=== PATIENT | female | born 1985 | race Caucasian/White ===

== ENCOUNTER 2016-03-18 08:23 | Emergency (ER) | payer OTHER ==
[~2016-03-18 08:23] MED LIST: IBUP800T PO; METHERGINE PO; NO HISTORICAL MEDS; PERC5TAB8 OR
[2016-03-18 09:18] LABS: CONTROL LINE UCG INT CTR LINE PRESENT
[2016-03-18 09:20] LABS: BASO % 0.4 % (0.0-1.0); EOS % 1.2 % (0.0-3.0); LARGE UNSTAINED CELL # 0.2 K/mm3 (0.0-0.4); LARGE UNSTAINED CELL % 3.5 % (0.0-4.0); LYMPH # 1.2 K/mm3 (1.5-4.5); LYMPH % 27.7 % (24.0-44.0); MEAN CORPUSCULAR HEMOGLOBIN 30.9 pg (27.0-33.0); MEAN CORPUSCULAR HGB CONC 32.5 g/dl (32.0-36.5); MONO # 0.3 K/mm3 (0.0-0.8); MONO % 7.1 % (0.0-5.0); NEUTROPHILS # 2.5 K/mm3 (1.8-7.7); PLATELET COUNT, AUTOMATED 222 k/mm3 (150-450); RED CELL DISTRIBUTION WIDTH 11.3 % (11.5-14.5); WHITE BLOOD COUNT 4.1 K/mm3 (4.0-10.0)
[2016-03-18 09:29] LABS: AMPHETAMINES LEVEL URINE NEGATIVE (NEGATIVE); BENZODIAZEPINES URINE NEGATIVE (NEGATIVE); COCAINE METABOLITE URINE NEGATIVE (NEGATIVE); CONTROL LINE INT CTR LINE PRESENT; METHADONE URINE NEGATIVE (NEGATIVE); OPIATES URINE NEGATIVE (NEGATIVE); TRICYCLIC ANTIDEPRESS URINE NEGATIVE (NEGATIVE)
[2016-03-18 09:31] LABS: ALBUMIN 3.4 GM/DL (3.2-5.2); ALBUMIN/GLOBULIN RATIO 1.06 (1.00-1.93); ALKALINE PHOSPHATASE 54 U/L (45-117); ALT/SGPT 15 U/L (12-78); ANION GAP 7 MEQ/L (8-16); AST/SGOT 15 U/L (15-37); BILIRUBIN,DIRECT < 0.1 MG/DL (0.0-0.2); BILIRUBIN,TOTAL 0.2 MG/DL (0.2-1.0); BLOOD UREA NITROGEN 9 MG/DL (7-18); CALCIUM LEVEL 7.8 MG/DL (8.5-10.1); CARBON DIOXIDE LEVEL 26 MEQ/L (21-32); CHLORIDE LEVEL 109 MEQ/L (98-107); CREATININE FOR GFR 0.75 MG/DL (0.55-1.02); GLOMERULAR FILTRATION RATE > 60.0 (>60); GLUCOSE, FASTING 92 MG/DL (70-105); POTASSIUM SERUM 4.4 MEQ/L (3.5-5.1); SODIUM LEVEL 142 MEQ/L (136-145); TOTAL PROTEIN 6.6 GM/DL (6.4-8.2)
--- NOTE | 2016-03-18 09:51 | REP ---
CT Head without contrast HISTORY: Headache COMPARISON: None There is no intraparenchymal hemorrhage, acute infarct, mass or midline shift. The ventricular system is normal in appearance. There is no extra cerebral collection. There is no fracture. The visualized sinuses are clear. IMPRESSION: There is no intracranial lesion. Signed by Lenny Giron MD 03/18/2016 09:43 A
--- NOTE | 2016-03-18 10:10 | EDDOCDS ---
Physician Documentation [facility] Name: Jessi Preston Age: 30 yrs Sex: Female : 1985 Arrival Date: 03/18/2016 Time: 08:23 Bed 6 Private MD: Disposition: 03/18/16 09:58 Discharged to Home/Self Care. Impression: Migraine, unspecified, not intractable, without status migrainosus. - Condition is Stable. - Discharge Instructions: Migraine Headache. - Medication Reconciliation, Local Pharmacy Hours form. - Follow up: Private Physician; When: Call to arrange an appointment; Reason: Further diagnostic work-up, Recheck today's complaints, Continuance of care. - Problem is new. - Symptoms have improved. Historical: - Allergies: no known allergies; - Home Meds: 1. BCP 1 tab once daily - PMHx: none; - PSHx: none; - Social history: Smoking status: Patient states was never smoker of tobacco. No barriers to communication noted, The patient speaks fluent Yi, Speaks appropriately for age. - Family history: Not pertinent. - : The pt / caregiver states he / she is not on anticoagulants. Home medication list is obtained from the patient. - Exposure Risk Screening:: None identified. AGRICULTURAL RESEARCH TECHNICIAN: 03/18 08:31 LMP 02/29/2016 pml Vital Signs: 08:29 BP 138 / 77 (auto/); pml 08:31 BP 138 / 77; Pulse 68; Resp 18; Temp 96.8(O); Pulse Ox 100% on R/A; Weight 67.13 kg / dem1 148 lbs; Height 5 ft. 10 in. (177.80 cm); Pain 0/10; 08:32 Pulse 64 MON; Pulse Ox 100% ; pml 08:44 Pulse 64 MON; Pulse Ox 100% ; pml 08:44 BP 115 / 58 (auto/); pml 08:55 Pulse 72 MON; Pulse Ox 99% ; pml 09:12 BP 123 / 87 (auto/); pml 09:14 BP 122 / 85 (auto/); pml 09:15 Pulse 70 MON; Pulse Ox 100% ; pml 09:29 Pulse 72 MON; Pulse Ox 100% ; pml 09:29 BP 117 / 79 (auto/); pml 09:41 Pulse 72 MON; Pulse Ox 87% ; pml 09:50 BP 124 / 77 (auto/); pml 10:08 BP 118 / 69; Pulse 73; Resp 18; Temp 97.6; Pulse Ox 100% ; pml 08:31 Body Mass Index 21.24 (67.13 kg, 177.80 cm) dem1 MDM: 08:46 Clean In Places Operator/Pulse Ox/q 15 min VS ordered. btw 08:46 Accucheck ordered. btw 08:46 IV Saline Lock ordered. btw 08:47 Carboxyhemoglobin Ordered. EDMS 08:47 Basic Metabolic Profile Ordered. EDMS 08:47 CBC with Diff Ordered. EDMS 08:47 Thyroid Stimulating Hormone Ordered. EDMS 08:47 Urinalysis Ordered. EDMS 08:47 Liver Profile Ordered. EDMS 08:47 Drug Eval Toxicology ED Only Ordered. EDMS 08:47 Urine Culture Ordered. EDMS 08:48 CT Head Without Contrast Ordered. EDMS 08:48 ECG WITH READING ER PHYS+CARDIAG ordered. EDMS 09:04 Urine Test-In Lab Ordered. EDMS 09:15 Financial registration complete. lg 09:15 [facility] Payment Agreement was scanned into [employer] and attached to record. lg 09:35 Carboxyhemoglobin Reviewed. btw 09:35 Basic Metabolic Profile Reviewed. btw 09:35 CBC with Diff Reviewed. btw 09:35 Urinalysis Reviewed. btw 09:35 Drug Eval Toxicology ED Only Reviewed. btw 09:35 Thyroid Stimulating Hormone Reviewed. btw 09:35 Liver Profile Reviewed. btw 09:35 Urine Test-In Lab Reviewed. btw Signatures: Dispatcher [employer] EDMS Phillip Heath, Reg Reg lg Fred Junior PA PA btw Cait Davidson RN RN pml The chart was reviewed and I authenticate all verbal orders and agree with the evaluation and treatment provided.Corrections: (The following items were deleted from the chart) 09:02 08:46 UCG by Nursing ordered. btw pml Attachments: 09:15 [facility] Payment Agreement lg MTDD
--- NOTE | 2016-03-18 10:10 | EDDOCDS ---
Nurse's Notes [facility] Name: Jessi Preston Age: 30 yrs Sex: Female : 1985 Arrival Date: 03/18/2016 Time: 08:23 Bed 6 Private MD: Diagnosis: Migraine, unspecified, not intractable, without status migrainosus Presentation: 03/18 08:26 Presenting complaint: Patient states: felt disoriented this AM and felt as if she could pml nto get the words out right and that her right hand was numb EMS states: woke up this AM and felt dizzy and nauseated. heavy smell of propane in building noted by EMS. Adult Sepsis Screening: The patient does not have new or worsening altered mentation. Patient's respiratory rate is less than 22. Systolic blood pressure is greater than 100. Patient has a qSOFA score of 0- Negative Sepsis Screen. Suicide/Homicide risk assessment- the patient denies having any suicidal and/or homicidal ideations and does not present with any other emotional, behavioral or mental health complaints. Transition of care: patient was not received from another setting of care. 08:26 Acuity: NORMA Level 3 pml 08:26 Method Of Arrival: Walkin/Carried/Asstd pml 08:30 Presenting complaint:. Status: Patient is not a environmental services tech or pml dependent. Triage Assessment: 08:31 General: Appears in no apparent distress, comfortable, Behavior is appropriate for age, pml cooperative. Pain: Location: left hand Quality of pain is described as numb. HIV screening NA for this visit Offered previously. The patient is triaged at the bedside. See Assessment in Nurses Notes section of ED record. Neurological: Level of Consciousness is awake, alert, Oriented to person, place, time, Fish Cleaner are equal bilaterally Moves all extremities. Gait is steady, Speech is normal, Facial symmetry appears normal, Numbness in left hand. Cardiovascular: Capillary refill < 3 seconds Rhythm is sinus rhythm No ectopy. Respiratory: Airway is patent Respiratory pattern is regular, symmetrical. GI: Abdomen is non- distended. Derm: Skin is pink, warm & dry. FOURTH OFFICER: 08:31 LMP 02/29/2016 pml Historical: - Allergies: no known allergies; - Home Meds: 1. BCP 1 tab once daily - PMHx: none; - PSHx: none; - Social history: Smoking status: Patient states was never smoker of tobacco. No barriers to communication noted, The patient speaks fluent Indonesian, Speaks appropriately for age. - Family history: Not pertinent. - : The pt / caregiver states he / she is not on anticoagulants. Home medication list is obtained from the patient. - Exposure Risk Screening:: None identified. Screenin:55 Screening information is obtained from the patient. Fall risk: No risks identified. pml Assistance ADL's: requires no assistance with activities of daily living. Abuse/DV Screen: The patient / caregiver reports he/she is: not in a situation that causes fear, pain or injury. Nutritional screening: No deficits noted. Advance Directives: Currently, there is no health care proxy. home support is adequate. Assessment: 09:43 General: Appears in no apparent distress, Behavior is appropriate for age, cooperative. pml Neurological: Level of Consciousness is awake, alert, Oriented to person, place, time, Fish Cleaner are equal bilaterally Moves all extremities. Gait is steady, Speech is normal, Facial symmetry appears normal, pt reports feeling like her "tongue is big" - no swelling appreciated and feeling like she can't speak normally. speech clear. . Cardiovascular: Capillary refill < 3 seconds. Respiratory: Airway is patent Respiratory effort is even, unlabored. Derm: Skin is pink, warm & dry. 10:06 General: Appears in no apparent distress, Behavior is appropriate for age, cooperative. pml Pain: Denies pain. Neurological: Level of Consciousness is awake, alert, Oriented to person, place, time, Fish Cleaner are equal bilaterally Moves all extremities. Speech is normal, Facial symmetry appears normal. Cardiovascular: Capillary refill < 3 seconds. Respiratory: Airway is patent Respiratory effort is even, unlabored. Derm: Skin is pink, warm & dry. Vital Signs: 08:29 BP 138 / 77 (auto/); pml 08:31 BP 138 / 77; Pulse 68; Resp 18; Temp 96.8(O); Pulse Ox 100% on R/A; Weight 67.13 kg; dem1 Height 5 ft. 10 in. (177.80 cm); Pain 0/10; 08:32 Pulse 64 MON; Pulse Ox 100% ; pml 08:44 Pulse 64 MON; Pulse Ox 100% ; pml 08:44 BP 115 / 58 (auto/); pml 08:55 Pulse 72 MON; Pulse Ox 99% ; pml 09:12 BP 123 / 87 (auto/); pml 09:14 BP 122 / 85 (auto/); pml 09:15 Pulse 70 MON; Pulse Ox 100% ; pml 09:29 Pulse 72 MON; Pulse Ox 100% ; pml 09:29 BP 117 / 79 (auto/); pml 09:41 Pulse 72 MON; Pulse Ox 87% ; pml 09:50 BP 124 / 77 (auto/); pml 10:08 BP 118 / 69; Pulse 73; Resp 18; Temp 97.6; Pulse Ox 100% ; pml 08:31 Body Mass Index 21.24 (67.13 kg, 177.80 cm) [facility] Vitals: 08:31 Log In Time N/A - ambulance arrival. dem1 ED Course: 08:24 Patient visited by Shahla Hernandes, Senior Mobile Developer. lbd 08:24 Patient moved to Waiting lbd 08:25 Patient moved to 6 lbd 08:29 Triage Initiated pml 08:32 Patient visited by Art Lee. dem1 08:34 Patient visited by Cait Davidson RN. pml 08:34 Fred Junior PA is PHCP. btw 08:34 Sona Augustin MD is Attending Physician. btw 08:34 Patient visited by Fred Junior PA. btw 08:55 monitoring coordinator on. Pulse ox on. NIBP on. lr2 08:55 The patient / caregiver is instructed regarding the plan of care and ED course. Patient pml has correct armband on for positive identification. Placed in gown. Bed in low position. Call light in reach. Side rails up X2. 08:55 EKG done. (by ED staff). Reviewed by Sona Augustin MD. lr2 08:55 Inserted peripheral IV: 20gauge IV in right antecubital area and blood collected. pml Patient tolerated the procedure well. 08:56 Patient visited by Cait Davidson RN. pml 09:15 [facility] Payment Agreement was scanned into [employer] and attached to record. lg 09:45 Patient visited by Cait Davidson RN. pml 10:08 Discontinued lock intact, bleeding controlled, pressure dressing applied, No pml redness/swelling at site. No procedures done that require assistance. Order Results: Lab Order: Carboxyhemoglobin; SPEC'M 03/18/16 08:53 Test: CARBOXYHEMOGLOBIN; Value: 1.9; Range: 0.0-1.5; Abnormal: Above high normal; Units: %; Status: F Test Note: ; CARBOXYHEMOGLOBIN EXPECTED VALUES SUBURBAN NON-SMOKERS LESS THAN 1.5% SMOKERS 1.5-5.0% HEAVY SMOKERS 5.0-9.0% Lab Order: Basic Metabolic Profile; SPEC'M 03/18/16 08:53 Test: GLUCOSE, FASTING; Value: 92; Range: 70-105; Units: MG/DL; Status: F Test: BLOOD UREA NITROGEN; Value: 9; Range: 7-18; Units: MG/DL; Status: F Test: CREATININE FOR GFR; Value: 0.75; Range: 0.55-1.02; Units: MG/DL; Status: F Test: GLOMERULAR FILTRATION RATE; Value: > 60.0; Range: >60; Status: F Test: SODIUM LEVEL; Value: 142; Range: 136-145; Units: MEQ/L; Status: F Test: POTASSIUM SERUM; Value: 4.4; Range: 3.5-5.1; Units: MEQ/L; Status: F Test: CHLORIDE LEVEL; Value: 109; Range: 98-107; Abnormal: Above high normal; Units: MEQ/L; Status: F Test: CARBON DIOXIDE LEVEL; Value: 26; Range: 21-32; Units: MEQ/L; Status: F Test: ANION GAP; Value: 7; Range: 8-16; Abnormal: Below low normal; Units: MEQ/L; Status: F Test: CALCIUM LEVEL; Value: 7.8; Range: 8.5-10.1; Abnormal: Below low normal; Units: MG/DL; Status: F Test Note: ; Units are mL/min/1.73 m2 Chronic Kidney Disease Staging per NKF: Stage I & II GFR >=60 Normal to Mildly Decreased Stage III GFR 30-59 Moderately Decreased Stage IV GFR 15-29 Severely Decreased Stage V GFR <15 Very Little GFR Left ESRD GFR <15 on TELEVISION ANTENNA INSTALLER Lab Order: CBC with Diff; SPEC'M 03/18/16 08:53 Test: WHITE BLOOD COUNT; Value: 4.1; Range: 4.0-10.0; Units: K/mm3; Status: F Test: RED BLOOD COUNT; Value: 4.20; Range: 4.00-5.40; Units: M/mm3; Status: F Test: HEMOGLOBIN; Value: 13.0; Range: 12.0-16.0; Units: g/dl; Status: F Test: HEMATOCRIT; Value: 39.9; Range: 36.0-47.0; Units: %; Status: F Test: MEAN CORPUSCULAR VOLUME; Value: 95.0; Range: 80.0-96.0; Units: fl; Status: F Test: MEAN CORPUSCULAR HEMOGLOBIN; Value: 30.9; Range: 27.0-33.0; Units: pg; Status: F Test: MEAN CORPUSCULAR HGB CONC; Value: 32.5; Range: 32.0-36.5; Units: g/dl; Status: F Test: RED CELL DISTRIBUTION WIDTH; Value: 11.3; Range: 11.5-14.5; Abnormal: Below low normal; Units: %; Status: F Test: PLATELET COUNT, AUTOMATED; Value: 222; Range: 150-450; Units: k/mm3; Status: F Test: NEUTROPHILS %; Value: 60.0; Range: 36.0-66.0; Units: %; Status: F Test: LYMPH %; Value: 27.7; Range: 24.0-44.0; Units: %; Status: F Test: MONO %; Value: 7.1; Range: 0.0-5.0; Abnormal: Above high normal; Units: %; Status: F Test: EOS %; Value: 1.2; Range: 0.0-3.0; Units: %; Status: F Test: BASO %; Value: 0.4; Range: 0.0-1.0; Units: %; Status: F Test: LARGE UNSTAINED CELL %; Value: 3.5; Range: 0.0-4.0; Units: %; Status: F Test: NEUTROPHILS #; Value: 2.5; Range: 1.8-7.7; Units: K/mm3; Status: F Test: LYMPH #; Value: 1.2; Range: 1.5-4.5; Abnormal: Below low normal; Units: K/mm3; Status: F Test: MONO #; Value: 0.3; Range: 0.0-0.8; Units: K/mm3; Status: F Test: EOS #; Value: 0.0; Range: 0.0-0.50; Units: K/mm3; Status: F Test: BASO #; Value: 0.0; Range: 0.0-0.2; Units: K/mm3; Status: F Test: LARGE UNSTAINED CELL #; Value: 0.2; Range: 0.0-0.4; Units: K/mm3; Status: F Lab Order: Thyroid Stimulating Hormone; SPEC'M 03/18/16 08:53 Test: THYROID STIMULATING HORMONE; Value: 1.670; Range: 0.358-3.740; Units: uIU/ML; Status: F Lab Order: Urinalysis; SPEC' 03/18/16 09:00 Test: APPEARANCE, URINE; Value: HAZY; Range: CLEAR; Status: F Test: COLOR, URINE; Value: STRAW; Range: YELLOW; Status: F Test: PH,URINE; Value: 7.0; Range: 5.0-9.0; Units: UNITS; Status: F Test: SPECIFIC GRAVITY URINE AUTO; Value: 1.008; Range: 1.002-1.035; Status: F Test: PROTEIN, URINE AUTO; Value: NEGATIVE; Range: NEGATIVE; Units: mg/dL; Status: F Test: GLUCOSE, URINE (UA) AUTO; Value: NEGATIVE; Range: NEGATIVE; Units: mg/dL; Status: F Test: KETONE, URINE AUTO; Value: NEGATIVE; Range: NEGATIVE; Units: mg/dL; Status: F Test: UROBILINOGEN, URINE AUTO; Value: 0.2; Range: 0.0-2.0; Units: mg/dL; Status: F Test: BILIRUBIN, URINE AUTO; Value: NEGATIVE; Range: NEGATIVE; Status: F Test: NITRITE, URINE AUTO; Value: NEGATIVE; Range: NEGATIVE; Status: F Test: LEUKOCYTE ESTERASE, URINE AUTO; Value: NEGATIVE; Range: NEGATIVE; Status: F Test: BLOOD, URINE BLOOD; Value: NEGATIVE; Range: NEGATIVE; Status: F Test: WBC, URINE AUTO; Value: 1; Range: 0-3; Units: /HPF; Status: F Test: RBC, URINE AUTO; Value: 4; Range: 0-3; Abnormal: Above high normal; Units: /HPF; Status: F Test: BACTERIA, URINE AUTO; Value: 1+; Range: NEGATIVE; Abnormal: Above high normal; Status: F Test: SQUAMOUS EPITHELIAL CELL UR AU; Value: 6; Range: 0-6; Units: /HPF; Status: F Test: HYALINE CAST, URINE AUTO; Value: 0; Range: 0-1; Units: /LPF; Status: F Lab Order: Liver Profile; SPEC'M 03/18/16 08:53 Test: AST/SGOT; Value: 15; Range: 15-37; Units: U/L; Status: F Test: ALT/SGPT; Value: 15; Range: 12-78; Units: U/L; Status: F Test: ALKALINE PHOSPHATASE; Value: 54; Range: 45-117; Units: U/L; Status: F Test: BILIRUBIN,TOTAL; Value: 0.2; Range: 0.2-1.0; Units: MG/DL; Status: F Test: BILIRUBIN,DIRECT; Value: < 0.1; Range: 0.0-0.2; Units: MG/DL; Status: F Test: TOTAL PROTEIN; Value: 6.6; Range: 6.4-8.2; Units: GM/DL; Status: F Test: ALBUMIN; Value: 3.4; Range: 3.2-5.2; Units: GM/DL; Status: F Test: ALBUMIN/GLOBULIN RATIO; Value: 1.06; Range: 1.00-1.93; Status: F Lab Order: Drug Eval Toxicology ED Only; SPEC'M 03/18/16 09:00 Test: AMPHETAMINES LEVEL URINE; Value: NEGATIVE; Range: NEGATIVE; Status: F Test: BARBITURATES URINE; Value: NEGATIVE; Range: NEGATIVE; Status: F Test: BENZODIAZEPINES URINE; Value: NEGATIVE; Range: NEGATIVE; Status: F Test: CANNABINOIDS URINE; Value: POSITIVE; Range: NEGATIVE; Abnormal: Above high normal; Status: F Test: COCAINE METABOLITE URINE; Value: NEGATIVE; Range: NEGATIVE; Status: F Test: METHADONE URINE; Value: NEGATIVE; Range: NEGATIVE; Status: F Test: OPIATES URINE; Value: NEGATIVE; Range: NEGATIVE; Status: F Test: TRICYCLIC ANTIDEPRESS URINE; Value: NEGATIVE; Range: NEGATIVE; Status: F Test Note: ; FALSE POSITIVE RESULTS CAN BE CAUSED BY THE USE OF PANTOPRAZOLE (PROTONIX). Lab Order: Urine Test-In Lab; SPEC'M 03/18/16 08:53 Test: URINE PREG TEST; Value: NEGATIVE; Range: NEGATIVE; Status: F Outcome: 09:58 Discharge ordered by Provider. btw 10:08 Discharge Assessment: Patient awake, alert and oriented x 3. No cognitive and/or pml functional deficits noted. Patient verbalized understanding of disposition instructions. patient administered narcotics - no. The following High Risk Discharge criteria are identified: None. Discharged to home ambulatory. Condition: good Condition: stable. Discharge instructions given to patient, Instructed on discharge instructions, follow up and referral plans. Demonstrated understanding of instructions, Pt was receptive of discharge instructions/ teaching. CT Study completed. Property sent home with patient. 10:09 Patient left the ED. pml Signatures: Shahla Hernandes, Senior Mobile Developer Unit lbd Phillip Heath, Reg Reg lg Fred Junior PA PA btw Cait Davidson RN RN pml Art Lee Laura lr2 Corrections: (The following items were deleted from the chart) 08:31 08:26 Presenting complaint: Patient states: woke up this AM and felt dizzy and pml nauseated. heavy smell of propane in building noted by EMS. pml MTDD
--- NOTE | 2016-03-18 21:27 | ECGEPIP ---
Stationary ECG Study [facility] - ED Test Date: 2016-03-18 Pat Name: DOMENICA LOZANO Department: Room: - Gender: F Entry Manager: sam : 1985 Requested By: OREN Ashley PA-C Order Number: [id number] Reading MD: Marlene Rodriguez Measurements Intervals [place] Rate: 65 P: 61 MI: 155 QRS: 29 QRSD: 86 T: 29 QT: 404 QTc: 422 Interpretive Statements SINUS RHYTHM NO PRIOR FOR COMPARISON Electronically Signed On 03-18-2016 21:26:50 EST by Marlene Rodriguez
--- NOTE | 2016-03-20 11:10 | EDDOCDS ---
Physician Documentation [facility] Name: Jessi Preston Age: 30 yrs Sex: Female : 1985 Arrival Date: 03/18/2016 Time: 08:23 Bed 6 Private MD: Disposition: 03/18/16 09:58 Discharged to Home/Self Care. Impression: Migraine, unspecified, not intractable, without status migrainosus. - Condition is Stable. - Discharge Instructions: Migraine Headache. - Medication Reconciliation, Local Pharmacy Hours form. - Follow up: Private Physician; When: Call to arrange an appointment; Reason: Further diagnostic work-up, Recheck today's complaints, Continuance of care. - Problem is new. - Symptoms have improved. Historical: - Allergies: no known allergies; - Home Meds: 1. BCP 1 tab once daily - PMHx: none; - PSHx: none; - Social history: Smoking status: Patient states was never smoker of tobacco. No barriers to communication noted, The patient speaks fluent Greenlandic, Speaks appropriately for age. - Family history: Not pertinent. - : The pt / caregiver states he / she is not on anticoagulants. Home medication list is obtained from the patient. - Exposure Risk Screening:: None identified. HEAD STOCK OPERATOR: 03/18 08:31 LMP 02/29/2016 pml Vital Signs: 08:29 BP 138 / 77 (auto/); pml 08:31 BP 138 / 77; Pulse 68; Resp 18; Temp 96.8(O); Pulse Ox 100% on R/A; Weight 67.13 kg / dem1 148 lbs; Height 5 ft. 10 in. (177.80 cm); Pain 0/10; 08:32 Pulse 64 MON; Pulse Ox 100% ; pml 08:44 Pulse 64 MON; Pulse Ox 100% ; pml 08:44 BP 115 / 58 (auto/); pml 08:55 Pulse 72 MON; Pulse Ox 99% ; pml 09:12 BP 123 / 87 (auto/); pml 09:14 BP 122 / 85 (auto/); pml 09:15 Pulse 70 MON; Pulse Ox 100% ; pml 09:29 Pulse 72 MON; Pulse Ox 100% ; pml 09:29 BP 117 / 79 (auto/); pml 09:41 Pulse 72 MON; Pulse Ox 87% ; pml 09:50 BP 124 / 77 (auto/); pml 10:08 BP 118 / 69; Pulse 73; Resp 18; Temp 97.6; Pulse Ox 100% ; pml 08:31 Body Mass Index 21.24 (67.13 kg, 177.80 cm) dem1 MDM: 08:46 Geotechnical Engineer/Pulse Ox/q 15 min VS ordered. btw 08:46 Accucheck ordered. btw 08:46 IV Saline Lock ordered. btw 08:47 Carboxyhemoglobin Ordered. EDMS 08:47 Basic Metabolic Profile Ordered. EDMS 08:47 CBC with Diff Ordered. EDMS 08:47 Thyroid Stimulating Hormone Ordered. EDMS 08:47 Urinalysis Ordered. EDMS 08:47 Liver Profile Ordered. EDMS 08:47 Drug Eval Toxicology ED Only Ordered. EDMS 08:47 Urine Culture Ordered. EDMS 08:48 CT Head Without Contrast Ordered. EDMS 08:48 ECG WITH READING ER PHYS+CARDIAG ordered. EDMS 09:04 Urine Test-In Lab Ordered. EDMS 09:15 Financial registration complete. lg 09:15 [facility] Payment Agreement was scanned into [employer] and attached to record. lg 09:35 Carboxyhemoglobin Reviewed. btw 09:35 Basic Metabolic Profile Reviewed. btw 09:35 CBC with Diff Reviewed. btw 09:35 Urinalysis Reviewed. btw 09:35 Drug Eval Toxicology ED Only Reviewed. btw 09:35 Thyroid Stimulating Hormone Reviewed. btw 09:35 Liver Profile Reviewed. btw 09:35 Urine Test-In Lab Reviewed. [facility] 03/19 16:16 T-Sheet-- Draft Copy was scanned into Outline and attached to record. gb 16:16 ECG/EKG was scanned into [employer] and attached to record. gb Signatures: Dispatcher [employer] EDMS Zahra Medel, Reg Reg gb Phillip Heath, Reg Reg lg Fred Junior PA PA btw Cait Davidson RN RN pml The chart was reviewed and I authenticate all verbal orders and agree with the evaluation and treatment provided.Corrections: (The following items were deleted from the chart) 03/18 09:02 08:46 UCG by Nursing ordered. bt pml Attachments: 09:15 [facility] Payment Agreement 03/19 16:16 T-Sheet-- Draft Copy gb 16:16 ECG/EKG gb Chart Complete MTDD
--- NOTE | 2016-03-20 11:10 | EDDOCDS ---
Nurse's Notes [facility] Name: Domenica Preston Age: 30 yrs Sex: Female : 1985 Arrival Date: 03/18/2016 Time: 08:23 Bed 6 Private MD: Diagnosis: Migraine, unspecified, not intractable, without status migrainosus Presentation: 03/18 08:26 Presenting complaint: Patient states: felt disoriented this AM and felt as if she could pml nto get the words out right and that her right hand was numb EMS states: woke up this AM and felt dizzy and nauseated. heavy smell of propane in building noted by EMS. Adult Sepsis Screening: The patient does not have new or worsening altered mentation. Patient's respiratory rate is less than 22. Systolic blood pressure is greater than 100. Patient has a qSOFA score of 0- Negative Sepsis Screen. Suicide/Homicide risk assessment- the patient denies having any suicidal and/or homicidal ideations and does not present with any other emotional, behavioral or mental health complaints. Transition of care: patient was not received from another setting of care. 08:26 Acuity: NORMA Level 3 pml 08:26 Method Of Arrival: Walkin/Carried/Asstd pml 08:30 Presenting complaint:. Status: Patient is not a public services assistant or pml dependent. Triage Assessment: 08:31 General: Appears in no apparent distress, comfortable, Behavior is appropriate for age, pml cooperative. Pain: Location: left hand Quality of pain is described as numb. HIV screening NA for this visit Offered previously. The patient is triaged at the bedside. See Assessment in Nurses Notes section of ED record. Neurological: Level of Consciousness is awake, alert, Oriented to person, place, time, Senior Contracts Manager are equal bilaterally Moves all extremities. Gait is steady, Speech is normal, Facial symmetry appears normal, Numbness in left hand. Cardiovascular: Capillary refill < 3 seconds Rhythm is sinus rhythm No ectopy. Respiratory: Airway is patent Respiratory pattern is regular, symmetrical. GI: Abdomen is non- distended. Derm: Skin is pink, warm & dry. TIP FINISHER: 08:31 LMP 02/29/2016 pml Historical: - Allergies: no known allergies; - Home Meds: 1. BCP 1 tab once daily - PMHx: none; - PSHx: none; - Social history: Smoking status: Patient states was never smoker of tobacco. No barriers to communication noted, The patient speaks fluent Sami, Speaks appropriately for age. - Family history: Not pertinent. - : The pt / caregiver states he / she is not on anticoagulants. Home medication list is obtained from the patient. - Exposure Risk Screening:: None identified. Screenin:55 Screening information is obtained from the patient. Fall risk: No risks identified. pml Assistance ADL's: requires no assistance with activities of daily living. Abuse/DV Screen: The patient / caregiver reports he/she is: not in a situation that causes fear, pain or injury. Nutritional screening: No deficits noted. Advance Directives: Currently, there is no health care proxy. home support is adequate. Assessment: 09:43 General: Appears in no apparent distress, Behavior is appropriate for age, cooperative. pml Neurological: Level of Consciousness is awake, alert, Oriented to person, place, time, Senior Contracts Manager are equal bilaterally Moves all extremities. Gait is steady, Speech is normal, Facial symmetry appears normal, pt reports feeling like her "tongue is big" - no swelling appreciated and feeling like she can't speak normally. speech clear. . Cardiovascular: Capillary refill < 3 seconds. Respiratory: Airway is patent Respiratory effort is even, unlabored. Derm: Skin is pink, warm & dry. 10:06 General: Appears in no apparent distress, Behavior is appropriate for age, cooperative. pml Pain: Denies pain. Neurological: Level of Consciousness is awake, alert, Oriented to person, place, time, Senior Contracts Manager are equal bilaterally Moves all extremities. Speech is normal, Facial symmetry appears normal. Cardiovascular: Capillary refill < 3 seconds. Respiratory: Airway is patent Respiratory effort is even, unlabored. Derm: Skin is pink, warm & dry. Vital Signs: 08:29 BP 138 / 77 (auto/); pml 08:31 BP 138 / 77; Pulse 68; Resp 18; Temp 96.8(O); Pulse Ox 100% on R/A; Weight 67.13 kg; dem1 Height 5 ft. 10 in. (177.80 cm); Pain 0/10; 08:32 Pulse 64 MON; Pulse Ox 100% ; pml 08:44 Pulse 64 MON; Pulse Ox 100% ; pml 08:44 BP 115 / 58 (auto/); pml 08:55 Pulse 72 MON; Pulse Ox 99% ; pml 09:12 BP 123 / 87 (auto/); pml 09:14 BP 122 / 85 (auto/); pml 09:15 Pulse 70 MON; Pulse Ox 100% ; pml 09:29 Pulse 72 MON; Pulse Ox 100% ; pml 09:29 BP 117 / 79 (auto/); pml 09:41 Pulse 72 MON; Pulse Ox 87% ; pml 09:50 BP 124 / 77 (auto/); pml 10:08 BP 118 / 69; Pulse 73; Resp 18; Temp 97.6; Pulse Ox 100% ; pml 08:31 Body Mass Index 21.24 (67.13 kg, 177.80 cm) [facility] Vitals: 08:31 Log In Time N/A - ambulance arrival. dem1 ED Course: 08:24 Patient visited by Shahla Hernandes, Smoke Jumper Supervisor. lbd 08:24 Patient moved to Waiting lbd 08:25 Patient moved to 6 lbd 08:29 Triage Initiated pml 08:32 Patient visited by Art Lee. dem1 08:34 Patient visited by Cait Davidson RN. pml 08:34 Oren Junior PA is PHCP. btw 08:34 Sona Augustin MD is Attending Physician. btw 08:34 Patient visited by Oren Junior PA. btw 08:55 compliance monitor on. Pulse ox on. NIBP on. lr2 08:55 The patient / caregiver is instructed regarding the plan of care and ED course. Patient pml has correct armband on for positive identification. Placed in gown. Bed in low position. Call light in reach. Side rails up X2. 08:55 EKG done. (by ED staff). Reviewed by Sona Augustin MD. lr2 08:55 Inserted peripheral IV: 20gauge IV in right antecubital area and blood collected. pml Patient tolerated the procedure well. 08:56 Patient visited by Cait Davidson RN. pml 09:15 [id number] Payment Agreement was scanned into [employer] and attached to record. lg 09:45 Patient visited by Cait Davidson RN. pml 10:08 Discontinued lock intact, bleeding controlled, pressure dressing applied, No pml redness/swelling at site. No procedures done that require assistance. 10:14 CT Head Without Contrast Returned. EDMS 22:16 EKG-ADULT Returned. EDMS 03/19 16:16 T-Sheet-- Draft Copy was scanned into [employer] and attached to record. 16:16 ECG/EKG was scanned into [employer] and attached to record. gb Order Results: Lab Order: Carboxyhemoglobin; [facility]' 03/18/16 08:53 Test: CARBOXYHEMOGLOBIN; Value: 1.9; Range: 0.0-1.5; Abnormal: Above high normal; Units: %; Status: F Test Note: ; CARBOXYHEMOGLOBIN EXPECTED VALUES [place] NON-SMOKERS LESS THAN 1.5% SMOKERS 1.5-5.0% HEAVY SMOKERS 5.0-9.0% Lab Order: Basic Metabolic Profile; [facility]' 03/18/16 08:53 Test: GLUCOSE, FASTING; Value: 92; Range: 70-105; Units: MG/DL; Status: F Test: BLOOD UREA NITROGEN; Value: 9; Range: 7-18; Units: MG/DL; Status: F Test: CREATININE FOR GFR; Value: 0.75; Range: 0.55-1.02; Units: MG/DL; Status: F Test: GLOMERULAR FILTRATION RATE; Value: > 60.0; Range: >60; Status: F Test: SODIUM LEVEL; Value: 142; Range: 136-145; Units: MEQ/L; Status: F Test: POTASSIUM SERUM; Value: 4.4; Range: 3.5-5.1; Units: MEQ/L; Status: F Test: CHLORIDE LEVEL; Value: 109; Range: 98-107; Abnormal: Above high normal; Units: MEQ/L; Status: F Test: CARBON DIOXIDE LEVEL; Value: 26; Range: 21-32; Units: MEQ/L; Status: F Test: ANION GAP; Value: 7; Range: 8-16; Abnormal: Below low normal; Units: MEQ/L; Status: F Test: CALCIUM LEVEL; Value: 7.8; Range: 8.5-10.1; Abnormal: Below low normal; Units: MG/DL; Status: F Test Note: ; Units are mL/min/1.73 m2 Chronic Kidney Disease Staging per NKF: Stage I & II GFR >=60 Normal to Mildly Decreased Stage III GFR 30-59 Moderately Decreased Stage IV GFR 15-29 Severely Decreased Stage V GFR <15 Very Little GFR Left ESRD GFR <15 on DEVELOPMENTAL BEHAVIORAL PHYSICIAN Lab Order: CBC with Diff; SPEC'M 03/18/16 08:53 Test: WHITE BLOOD COUNT; Value: 4.1; Range: 4.0-10.0; Units: K/mm3; Status: F Test: RED BLOOD COUNT; Value: 4.20; Range: 4.00-5.40; Units: M/mm3; Status: F Test: HEMOGLOBIN; Value: 13.0; Range: 12.0-16.0; Units: g/dl; Status: F Test: HEMATOCRIT; Value: 39.9; Range: 36.0-47.0; Units: %; Status: F Test: MEAN CORPUSCULAR VOLUME; Value: 95.0; Range: 80.0-96.0; Units: fl; Status: F Test: MEAN CORPUSCULAR HEMOGLOBIN; Value: 30.9; Range: 27.0-33.0; Units: pg; Status: F Test: MEAN CORPUSCULAR HGB CONC; Value: 32.5; Range: 32.0-36.5; Units: g/dl; Status: F Test: RED CELL DISTRIBUTION WIDTH; Value: 11.3; Range: 11.5-14.5; Abnormal: Below low normal; Units: %; Status: F Test: PLATELET COUNT, AUTOMATED; Value: 222; Range: 150-450; Units: k/mm3; Status: F Test: NEUTROPHILS %; Value: 60.0; Range: 36.0-66.0; Units: %; Status: F Test: LYMPH %; Value: 27.7; Range: 24.0-44.0; Units: %; Status: F Test: MONO %; Value: 7.1; Range: 0.0-5.0; Abnormal: Above high normal; Units: %; Status: F Test: EOS %; Value: 1.2; Range: 0.0-3.0; Units: %; Status: F Test: BASO %; Value: 0.4; Range: 0.0-1.0; Units: %; Status: F Test: LARGE UNSTAINED CELL %; Value: 3.5; Range: 0.0-4.0; Units: %; Status: F Test: NEUTROPHILS #; Value: 2.5; Range: 1.8-7.7; Units: K/mm3; Status: F Test: LYMPH #; Value: 1.2; Range: 1.5-4.5; Abnormal: Below low normal; Units: K/mm3; Status: F Test: MONO #; Value: 0.3; Range: 0.0-0.8; Units: K/mm3; Status: F Test: EOS #; Value: 0.0; Range: 0.0-0.50; Units: K/mm3; Status: F Test: BASO #; Value: 0.0; Range: 0.0-0.2; Units: K/mm3; Status: F Test: LARGE UNSTAINED CELL #; Value: 0.2; Range: 0.0-0.4; Units: K/mm3; Status: F Lab Order: Thyroid Stimulating Hormone; [facility]' 03/18/16 08:53 Test: THYROID STIMULATING HORMONE; Value: 1.670; Range: 0.358-3.740; Units: uIU/ML; Status: F Lab Order: Urinalysis; [facility]' 03/18/16 09:00 Test: APPEARANCE, URINE; Value: HAZY; Range: CLEAR; Status: F Test: COLOR, URINE; Value: STRAW; Range: YELLOW; Status: F Test: PH,URINE; Value: 7.0; Range: 5.0-9.0; Units: UNITS; Status: F Test: SPECIFIC GRAVITY URINE AUTO; Value: 1.008; Range: 1.002-1.035; Status: F Test: PROTEIN, URINE AUTO; Value: NEGATIVE; Range: NEGATIVE; Units: mg/dL; Status: F Test: GLUCOSE, URINE (UA) AUTO; Value: NEGATIVE; Range: NEGATIVE; Units: mg/dL; Status: F Test: KETONE, URINE AUTO; Value: NEGATIVE; Range: NEGATIVE; Units: mg/dL; Status: F Test: UROBILINOGEN, URINE AUTO; Value: 0.2; Range: 0.0-2.0; Units: mg/dL; Status: F Test: BILIRUBIN, URINE AUTO; Value: NEGATIVE; Range: NEGATIVE; Status: F Test: NITRITE, URINE AUTO; Value: NEGATIVE; Range: NEGATIVE; Status: F Test: LEUKOCYTE ESTERASE, URINE AUTO; Value: NEGATIVE; Range: NEGATIVE; Status: F Test: BLOOD, URINE BLOOD; Value: NEGATIVE; Range: NEGATIVE; Status: F Test: WBC, URINE AUTO; Value: 1; Range: 0-3; Units: /HPF; Status: F Test: RBC, URINE AUTO; Value: 4; Range: 0-3; Abnormal: Above high normal; Units: /HPF; Status: F Test: BACTERIA, URINE AUTO; Value: 1+; Range: NEGATIVE; Abnormal: Above high normal; Status: F Test: SQUAMOUS EPITHELIAL CELL UR AU; Value: 6; Range: 0-6; Units: /HPF; Status: F Test: HYALINE CAST, URINE AUTO; Value: 0; Range: 0-1; Units: /LPF; Status: F Lab Order: Urine Culture; SPEC'M 03/18/16 09:00 Test: URINE CULTURE; Value: <EXTERNAL COMMENT eCWMed> FULL REPORT IN LAB NOTES (eCW and Medent).; Status: F Test: URINE CULTURE; Value: ORGANISM 1: ESCHERICHIA COLI; Status: F Test: URINE CULTURE; Value: ESCHERICHIA COLI; Status: F Test: URINE CULTURE; Value: COLONY COUNT CFU/ml 15,000; Status: F Test: URINE CULTURE; Value: GRAM NEG SENSI - VITEK 80; Status: F Test: URINE CULTURE; Value: Method: VIT2; Status: F Test: URINE CULTURE; Value: EXTD BRD SPCTRM BETA LACTAMASE -; Status: F Test: URINE CULTURE; Value: TRIMETHOPRIM/SULFAMETHOXAZOLE >=320 R; Status: F Test: URINE CULTURE; Value: AMPICILLIN >=32 R; Status: F Test: URINE CULTURE; Value: GENTAMICIN >=16 R; Status: F Test: URINE CULTURE; Value: NITROFURANTOIN <=16 S; Status: F Test: URINE CULTURE; Value: CEFAZOLIN <=4 S; Status: F Test: URINE CULTURE; Value: LEVOFLOXACIN <=0.12 S; Status: F Test: URINE CULTURE; Value: TOBRAMYCIN 8 I; Status: F Test: URINE CULTURE; Value: CEFTRIAXONE <=1 S; Status: F Test: URINE CULTURE; Value: CEFTAZIDIME <=1 S; Status: F Test: URINE CULTURE; Value: AMPICILLIN/SULBACTAM >=32 R; Status: F Test: URINE CULTURE; Value: PIPERACILLIN/TAZOBACTAM <=4 S; Status: F Test: URINE CULTURE; Value: AZTREONAM <=1 S; Status: F Test: URINE CULTURE; Value: ERTAPENEM <=0.5 S; Status: F Test: URINE CULTURE; Value: MEROPENEM <=0.25 S; Status: F Test: URINE CULTURE; Value: TIGECYCLINE <=0.5 S; Status: F Test: URINE CULTURE; Value: CEFEPIME <=1 S; Status: F Lab Order: Liver Profile; SPEC'M 03/18/16 08:53 Test: AST/SGOT; Value: 15; Range: 15-37; Units: U/L; Status: F Test: ALT/SGPT; Value: 15; Range: 12-78; Units: U/L; Status: F Test: ALKALINE PHOSPHATASE; Value: 54; Range: 45-117; Units: U/L; Status: F Test: BILIRUBIN,TOTAL; Value: 0.2; Range: 0.2-1.0; Units: MG/DL; Status: F Test: BILIRUBIN,DIRECT; Value: < 0.1; Range: 0.0-0.2; Units: MG/DL; Status: F Test: TOTAL PROTEIN; Value: 6.6; Range: 6.4-8.2; Units: GM/DL; Status: F Test: ALBUMIN; Value: 3.4; Range: 3.2-5.2; Units: GM/DL; Status: F Test: ALBUMIN/GLOBULIN RATIO; Value: 1.06; Range: 1.00-1.93; Status: F Lab Order: Drug Eval Toxicology ED Only; SPEC'M 03/18/16 09:00 Test: AMPHETAMINES LEVEL URINE; Value: NEGATIVE; Range: NEGATIVE; Status: F Test: BARBITURATES URINE; Value: NEGATIVE; Range: NEGATIVE; Status: F Test: BENZODIAZEPINES URINE; Value: NEGATIVE; Range: NEGATIVE; Status: F Test: CANNABINOIDS URINE; Value: POSITIVE; Range: NEGATIVE; Abnormal: Above high normal; Status: F Test: COCAINE METABOLITE URINE; Value: NEGATIVE; Range: NEGATIVE; Status: F Test: METHADONE URINE; Value: NEGATIVE; Range: NEGATIVE; Status: F Test: OPIATES URINE; Value: NEGATIVE; Range: NEGATIVE; Status: F Test: TRICYCLIC ANTIDEPRESS URINE; Value: NEGATIVE; Range: NEGATIVE; Status: F Test Note: ; FALSE POSITIVE RESULTS CAN BE CAUSED BY THE USE OF PANTOPRAZOLE (PROTONIX). Lab Order: Urine Test-In Lab; SPEC'M 03/18/16 08:53 Test: URINE PREG TEST; Value: NEGATIVE; Range: NEGATIVE; Status: F Radiology Order: CT Head Without Contrast Test: CT Head Without Contrast REASON FOR EXAMINATION: HALL, dizzy; CT Head without contrast; ; HISTORY: Headache; ; COMPARISON: None; ; There is no intraparenchymal hemorrhage, acute infarct, mass or midline shift.; The ventricular system is normal in appearance. There is no extra cerebral; collection. There is no fracture. 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 btw 10:08 Discharge Assessment: Patient awake, alert and oriented x 3. No cognitive and/or pml functional deficits noted. Patient verbalized understanding of disposition instructions. patient administered narcotics - no. The following High Risk Discharge criteria are identified: None. Discharged to home ambulatory. Condition: good Condition: stable. Discharge instructions given to patient, Instructed on discharge instructions, follow up and referral plans. Demonstrated understanding of instructions, Pt was receptive of discharge instructions/ teaching. CT Study completed. Property sent home with patient. 10:09 Patient left the ED. pml Signatures: Dispatcher [employer] EDMS Shahla Hernandes, Smoke Jumper Supervisor Unit lbd Zahra Medel, Reg Reg gb Phillip Heath, Reg Reg lg Oren Junior PA PA btw Cait Davidson,ROXY RN pml Art Lee1 Holly Worrell2 Corrections: (The following items were deleted from the chart) 08:31 08:26 Presenting complaint: Patient states: woke up this AM and felt dizzy and pml nauseated. heavy smell of propane in building noted by EMS. pml Chart Complete MTDD
--- NOTE | 2016-03-20 11:10 | EDDOCDS ---
Physician Documentation [facility] Name: Jessi Preston Age: 30 yrs Sex: Female : 1985 Arrival Date: 03/18/2016 Time: 08:23 Bed 6 Private MD: Disposition: 03/18/16 09:58 Discharged to Home/Self Care. Impression: Migraine, unspecified, not intractable, without status migrainosus. - Condition is Stable. - Discharge Instructions: Migraine Headache. - Medication Reconciliation, Local Pharmacy Hours form. - Follow up: Private Physician; When: Call to arrange an appointment; Reason: Further diagnostic work-up, Recheck today's complaints, Continuance of care. - Problem is new. - Symptoms have improved. Historical: - Allergies: no known allergies; - Home Meds: 1. BCP 1 tab once daily - PMHx: none; - PSHx: none; - Social history: Smoking status: Patient states was never smoker of tobacco. No barriers to communication noted, The patient speaks fluent Croatian, Speaks appropriately for age. - Family history: Not pertinent. - : The pt / caregiver states he / she is not on anticoagulants. Home medication list is obtained from the patient. - Exposure Risk Screening:: None identified. RESIDENTIAL FINISH CARPENTER: 03/18 08:31 LMP 02/29/2016 pml Vital Signs: 08:29 BP 138 / 77 (auto/); pml 08:31 BP 138 / 77; Pulse 68; Resp 18; Temp 96.8(O); Pulse Ox 100% on R/A; Weight 67.13 kg / dem1 148 lbs; Height 5 ft. 10 in. (177.80 cm); Pain 0/10; 08:32 Pulse 64 MON; Pulse Ox 100% ; pml 08:44 Pulse 64 MON; Pulse Ox 100% ; pml 08:44 BP 115 / 58 (auto/); pml 08:55 Pulse 72 MON; Pulse Ox 99% ; pml 09:12 BP 123 / 87 (auto/); pml 09:14 BP 122 / 85 (auto/); pml 09:15 Pulse 70 MON; Pulse Ox 100% ; pml 09:29 Pulse 72 MON; Pulse Ox 100% ; pml 09:29 BP 117 / 79 (auto/); pml 09:41 Pulse 72 MON; Pulse Ox 87% ; pml 09:50 BP 124 / 77 (auto/); pml 10:08 BP 118 / 69; Pulse 73; Resp 18; Temp 97.6; Pulse Ox 100% ; pml 08:31 Body Mass Index 21.24 (67.13 kg, 177.80 cm) dem1 MDM: 08:46 Gift Shop Clerk/Pulse Ox/q 15 min VS ordered. btw 08:46 Accucheck ordered. btw 08:46 IV Saline Lock ordered. btw 08:47 Carboxyhemoglobin Ordered. EDMS 08:47 Basic Metabolic Profile Ordered. EDMS 08:47 CBC with Diff Ordered. EDMS 08:47 Thyroid Stimulating Hormone Ordered. EDMS 08:47 Urinalysis Ordered. EDMS 08:47 Liver Profile Ordered. EDMS 08:47 Drug Eval Toxicology ED Only Ordered. EDMS 08:47 Urine Culture Ordered. EDMS 08:48 CT Head Without Contrast Ordered. EDMS 08:48 ECG WITH READING ER PHYS+CARDIAG ordered. EDMS 09:04 Urine Test-In Lab Ordered. EDMS 09:15 Financial registration complete. lg 09:15 [facility] Payment Agreement was scanned into [employer] and attached to record. lg 09:35 Carboxyhemoglobin Reviewed. btw 09:35 Basic Metabolic Profile Reviewed. btw 09:35 CBC with Diff Reviewed. btw 09:35 Urinalysis Reviewed. btw 09:35 Drug Eval Toxicology ED Only Reviewed. btw 09:35 Thyroid Stimulating Hormone Reviewed. btw 09:35 Liver Profile Reviewed. btw 09:35 Urine Test-In Lab Reviewed. [facility] 03/19 16:16 T-Sheet-- Draft Copy was scanned into [employer] and attached to record. gb 16:16 ECG/EKG was scanned into [employer] and attached to record. gb Signatures: Dispatcher [employer] EDMS Zahra Medel, Reg Reg gb Pihllip Heath, Reg Reg lg Fred Junior PA PA btw Cait Davidson RN RN pml The chart was reviewed and I authenticate all verbal orders and agree with the evaluation and treatment provided.Corrections: (The following items were deleted from the chart) 03/18 09:02 08:46 UCG by Nursing ordered. bt pml Attachments: 09:15 [facility] Payment Agreement 03/19 16:16 T-Sheet-- Draft Copy gb 16:16 ECG/EKG gb Chart Complete MTDD
--- NOTE | 2016-03-20 17:40 | EDDOCDS ---
Nurse's Notes [facility] Name: Domenica Preston Age: 30 yrs Sex: Female : 1985 Arrival Date: 03/18/2016 Time: 08:23 Bed 6 Private MD: Diagnosis: Migraine, unspecified, not intractable, without status migrainosus Presentation: 03/18 08:26 Presenting complaint: Patient states: felt disoriented this AM and felt as if she could pml nto get the words out right and that her right hand was numb EMS states: woke up this AM and felt dizzy and nauseated. heavy smell of propane in building noted by EMS. Adult Sepsis Screening: The patient does not have new or worsening altered mentation. Patient's respiratory rate is less than 22. Systolic blood pressure is greater than 100. Patient has a qSOFA score of 0- Negative Sepsis Screen. Suicide/Homicide risk assessment- the patient denies having any suicidal and/or homicidal ideations and does not present with any other emotional, behavioral or mental health complaints. Transition of care: patient was not received from another setting of care. 08:26 Acuity: NORMA Level 3 pml 08:26 Method Of Arrival: Walkin/Carried/Asstd pml 08:30 Presenting complaint:. Status: Patient is not a mechanical service specialist or pml dependent. Triage Assessment: 08:31 General: Appears in no apparent distress, comfortable, Behavior is appropriate for age, pml cooperative. Pain: Location: left hand Quality of pain is described as numb. HIV screening NA for this visit Offered previously. The patient is triaged at the bedside. See Assessment in Nurses Notes section of ED record. Neurological: Level of Consciousness is awake, alert, Oriented to person, place, time, Garment Steamer are equal bilaterally Moves all extremities. Gait is steady, Speech is normal, Facial symmetry appears normal, Numbness in left hand. Cardiovascular: Capillary refill < 3 seconds Rhythm is sinus rhythm No ectopy. Respiratory: Airway is patent Respiratory pattern is regular, symmetrical. GI: Abdomen is non- distended. Derm: Skin is pink, warm & dry. SCIENCE TECHNICIANS: 08:31 LMP 02/29/2016 pml Historical: - Allergies: no known allergies; - Home Meds: 1. BCP 1 tab once daily - PMHx: none; - PSHx: none; - Social history: Smoking status: Patient states was never smoker of tobacco. No barriers to communication noted, The patient speaks fluent Hungarian, Speaks appropriately for age. - Family history: Not pertinent. - : The pt / caregiver states he / she is not on anticoagulants. Home medication list is obtained from the patient. - Exposure Risk Screening:: None identified. Screenin:55 Screening information is obtained from the patient. Fall risk: No risks identified. pml Assistance ADL's: requires no assistance with activities of daily living. Abuse/DV Screen: The patient / caregiver reports he/she is: not in a situation that causes fear, pain or injury. Nutritional screening: No deficits noted. Advance Directives: Currently, there is no health care proxy. home support is adequate. Assessment: 09:43 General: Appears in no apparent distress, Behavior is appropriate for age, cooperative. pml Neurological: Level of Consciousness is awake, alert, Oriented to person, place, time, Garment Steamer are equal bilaterally Moves all extremities. Gait is steady, Speech is normal, Facial symmetry appears normal, pt reports feeling like her "tongue is big" - no swelling appreciated and feeling like she can't speak normally. speech clear. . Cardiovascular: Capillary refill < 3 seconds. Respiratory: Airway is patent Respiratory effort is even, unlabored. Derm: Skin is pink, warm & dry. 10:06 General: Appears in no apparent distress, Behavior is appropriate for age, cooperative. pml Pain: Denies pain. Neurological: Level of Consciousness is awake, alert, Oriented to person, place, time, Garment Steamer are equal bilaterally Moves all extremities. Speech is normal, Facial symmetry appears normal. Cardiovascular: Capillary refill < 3 seconds. Respiratory: Airway is patent Respiratory effort is even, unlabored. Derm: Skin is pink, warm & dry. Vital Signs: 08:29 BP 138 / 77 (auto/); pml 08:31 BP 138 / 77; Pulse 68; Resp 18; Temp 96.8(O); Pulse Ox 100% on R/A; Weight 67.13 kg; dem1 Height 5 ft. 10 in. (177.80 cm); Pain 0/10; 08:32 Pulse 64 MON; Pulse Ox 100% ; pml 08:44 Pulse 64 MON; Pulse Ox 100% ; pml 08:44 BP 115 / 58 (auto/); pml 08:55 Pulse 72 MON; Pulse Ox 99% ; pml 09:12 BP 123 / 87 (auto/); pml 09:14 BP 122 / 85 (auto/); pml 09:15 Pulse 70 MON; Pulse Ox 100% ; pml 09:29 Pulse 72 MON; Pulse Ox 100% ; pml 09:29 BP 117 / 79 (auto/); pml 09:41 Pulse 72 MON; Pulse Ox 87% ; pml 09:50 BP 124 / 77 (auto/); pml 10:08 BP 118 / 69; Pulse 73; Resp 18; Temp 97.6; Pulse Ox 100% ; pml 08:31 Body Mass Index 21.24 (67.13 kg, 177.80 cm) [facility] Vitals: 08:31 Log In Time N/A - ambulance arrival. dem1 ED Course: 08:24 Patient visited by Shahla Hernandes, Coconut Jelly Roller. lbd 08:24 Patient moved to Waiting lbd 08:25 Patient moved to 6 lbd 08:29 Triage Initiated pml 08:32 Patient visited by Art Lee. dem1 08:34 Patient visited by Cait Davidson RN. pml 08:34 Oren Junior PA is PHCP. btw 08:34 Sona Augustin MD is Attending Physician. btw 08:34 Patient visited by Oren Junior PA. btw 08:55 property assessment monitor on. Pulse ox on. NIBP on. lr2 08:55 The patient / caregiver is instructed regarding the plan of care and ED course. Patient pml has correct armband on for positive identification. Placed in gown. Bed in low position. Call light in reach. Side rails up X2. 08:55 EKG done. (by ED staff). Reviewed by Sona Augustin MD. lr2 08:55 Inserted peripheral IV: 20gauge IV in right antecubital area and blood collected. pml Patient tolerated the procedure well. 08:56 Patient visited by Cait Davidson RN. pml 09:15 [facility] Payment Agreement was scanned into [employer] and attached to record. lg 09:45 Patient visited by Cait Davidson RN. pml 10:08 Discontinued lock intact, bleeding controlled, pressure dressing applied, No pml redness/swelling at site. No procedures done that require assistance. 10:14 CT Head Without Contrast Returned. EDMS 22:16 EKG-ADULT Returned. EDMS 03/19 16:16 T-Sheet-- Draft Copy was scanned into [employer] and attached to record. 16:16 ECG/EKG was scanned into [employer] and attached to record. gb Order Results: Lab Order: Carboxyhemoglobin; [facility] 03/18/16 08:53 Test: CARBOXYHEMOGLOBIN; Value: 1.9; Range: 0.0-1.5; Abnormal: Above high normal; Units: %; Status: F Test Note: ; CARBOXYHEMOGLOBIN EXPECTED VALUES SUB[place]AN NON-SMOKERS LESS THAN 1.5% SMOKERS 1.5-5.0% HEAVY SMOKERS 5.0-9.0% Lab Order: Basic Metabolic Profile; [facility] 03/18/16 08:53 Test: GLUCOSE, FASTING; Value: 92; Range: 70-105; Units: MG/DL; Status: F Test: BLOOD UREA NITROGEN; Value: 9; Range: 7-18; Units: MG/DL; Status: F Test: CREATININE FOR GFR; Value: 0.75; Range: 0.55-1.02; Units: MG/DL; Status: F Test: GLOMERULAR FILTRATION RATE; Value: > 60.0; Range: >60; Status: F Test: SODIUM LEVEL; Value: 142; Range: 136-145; Units: MEQ/L; Status: F Test: POTASSIUM SERUM; Value: 4.4; Range: 3.5-5.1; Units: MEQ/L; Status: F Test: CHLORIDE LEVEL; Value: 109; Range: 98-107; Abnormal: Above high normal; Units: MEQ/L; Status: F Test: CARBON DIOXIDE LEVEL; Value: 26; Range: 21-32; Units: MEQ/L; Status: F Test: ANION GAP; Value: 7; Range: 8-16; Abnormal: Below low normal; Units: MEQ/L; Status: F Test: CALCIUM LEVEL; Value: 7.8; Range: 8.5-10.1; Abnormal: Below low normal; Units: MG/DL; Status: F Test Note: ; Units are mL/min/1.73 m2 Chronic Kidney Disease Staging per NKF: Stage I & II GFR >=60 Normal to Mildly Decreased Stage III GFR 30-59 Moderately Decreased Stage IV GFR 15-29 Severely Decreased Stage V GFR <15 Very Little GFR Left ESRD GFR <15 on SHEET METAL PATTERN CUTTER Lab Order: CBC with Diff; SPEC'M 03/18/16 08:53 Test: WHITE BLOOD COUNT; Value: 4.1; Range: 4.0-10.0; Units: K/mm3; Status: F Test: RED BLOOD COUNT; Value: 4.20; Range: 4.00-5.40; Units: M/mm3; Status: F Test: HEMOGLOBIN; Value: 13.0; Range: 12.0-16.0; Units: g/dl; Status: F Test: HEMATOCRIT; Value: 39.9; Range: 36.0-47.0; Units: %; Status: F Test: MEAN CORPUSCULAR VOLUME; Value: 95.0; Range: 80.0-96.0; Units: fl; Status: F Test: MEAN CORPUSCULAR HEMOGLOBIN; Value: 30.9; Range: 27.0-33.0; Units: pg; Status: F Test: MEAN CORPUSCULAR HGB CONC; Value: 32.5; Range: 32.0-36.5; Units: g/dl; Status: F Test: RED CELL DISTRIBUTION WIDTH; Value: 11.3; Range: 11.5-14.5; Abnormal: Below low normal; Units: %; Status: F Test: PLATELET COUNT, AUTOMATED; Value: 222; Range: 150-450; Units: k/mm3; Status: F Test: NEUTROPHILS %; Value: 60.0; Range: 36.0-66.0; Units: %; Status: F Test: LYMPH %; Value: 27.7; Range: 24.0-44.0; Units: %; Status: F Test: MONO %; Value: 7.1; Range: 0.0-5.0; Abnormal: Above high normal; Units: %; Status: F Test: EOS %; Value: 1.2; Range: 0.0-3.0; Units: %; Status: F Test: BASO %; Value: 0.4; Range: 0.0-1.0; Units: %; Status: F Test: LARGE UNSTAINED CELL %; Value: 3.5; Range: 0.0-4.0; Units: %; Status: F Test: NEUTROPHILS #; Value: 2.5; Range: 1.8-7.7; Units: K/mm3; Status: F Test: LYMPH #; Value: 1.2; Range: 1.5-4.5; Abnormal: Below low normal; Units: K/mm3; Status: F Test: MONO #; Value: 0.3; Range: 0.0-0.8; Units: K/mm3; Status: F Test: EOS #; Value: 0.0; Range: 0.0-0.50; Units: K/mm3; Status: F Test: BASO #; Value: 0.0; Range: 0.0-0.2; Units: K/mm3; Status: F Test: LARGE UNSTAINED CELL #; Value: 0.2; Range: 0.0-0.4; Units: K/mm3; Status: F Lab Order: Thyroid Stimulating Hormone; [facility] 03/18/16 08:53 Test: THYROID STIMULATING HORMONE; Value: 1.670; Range: 0.358-3.740; Units: uIU/ML; Status: F Lab Order: Urinalysis; [facility] 03/18/16 09:00 Test: APPEARANCE, URINE; Value: HAZY; Range: CLEAR; Status: F Test: COLOR, URINE; Value: STRAW; Range: YELLOW; Status: F Test: PH,URINE; Value: 7.0; Range: 5.0-9.0; Units: UNITS; Status: F Test: SPECIFIC GRAVITY URINE AUTO; Value: 1.008; Range: 1.002-1.035; Status: F Test: PROTEIN, URINE AUTO; Value: NEGATIVE; Range: NEGATIVE; Units: mg/dL; Status: F Test: GLUCOSE, URINE (UA) AUTO; Value: NEGATIVE; Range: NEGATIVE; Units: mg/dL; Status: F Test: KETONE, URINE AUTO; Value: NEGATIVE; Range: NEGATIVE; Units: mg/dL; Status: F Test: UROBILINOGEN, URINE AUTO; Value: 0.2; Range: 0.0-2.0; Units: mg/dL; Status: F Test: BILIRUBIN, URINE AUTO; Value: NEGATIVE; Range: NEGATIVE; Status: F Test: NITRITE, URINE AUTO; Value: NEGATIVE; Range: NEGATIVE; Status: F Test: LEUKOCYTE ESTERASE, URINE AUTO; Value: NEGATIVE; Range: NEGATIVE; Status: F Test: BLOOD, URINE BLOOD; Value: NEGATIVE; Range: NEGATIVE; Status: F Test: WBC, URINE AUTO; Value: 1; Range: 0-3; Units: /HPF; Status: F Test: RBC, URINE AUTO; Value: 4; Range: 0-3; Abnormal: Above high normal; Units: /HPF; Status: F Test: BACTERIA, URINE AUTO; Value: 1+; Range: NEGATIVE; Abnormal: Above high normal; Status: F Test: SQUAMOUS EPITHELIAL CELL UR AU; Value: 6; Range: 0-6; Units: /HPF; Status: F Test: HYALINE CAST, URINE AUTO; Value: 0; Range: 0-1; Units: /LPF; Status: F Lab Order: Urine Culture; SPEC'M 03/18/16 09:00 Test: URINE CULTURE; Value: <EXTERNAL COMMENT eCWMed> FULL REPORT IN LAB NOTES (eCW and Medent).; Status: F Test: URINE CULTURE; Value: ORGANISM 1: ESCHERICHIA COLI; Status: F Test: URINE CULTURE; Value: ESCHERICHIA COLI; Status: F Test: URINE CULTURE; Value: COLONY COUNT CFU/ml 15,000; Status: F Test: URINE CULTURE; Value: GRAM NEG SENSI - VITEK 80; Status: F Test: URINE CULTURE; Value: Method: VIT2; Status: F Test: URINE CULTURE; Value: EXTD BRD SPCTRM BETA LACTAMASE -; Status: F Test: URINE CULTURE; Value: TRIMETHOPRIM/SULFAMETHOXAZOLE >=320 R; Status: F Test: URINE CULTURE; Value: AMPICILLIN >=32 R; Status: F Test: URINE CULTURE; Value: GENTAMICIN >=16 R; Status: F Test: URINE CULTURE; Value: NITROFURANTOIN <=16 S; Status: F Test: URINE CULTURE; Value: CEFAZOLIN <=4 S; Status: F Test: URINE CULTURE; Value: LEVOFLOXACIN <=0.12 S; Status: F Test: URINE CULTURE; Value: TOBRAMYCIN 8 I; Status: F Test: URINE CULTURE; Value: CEFTRIAXONE <=1 S; Status: F Test: URINE CULTURE; Value: CEFTAZIDIME <=1 S; Status: F Test: URINE CULTURE; Value: AMPICILLIN/SULBACTAM >=32 R; Status: F Test: URINE CULTURE; Value: PIPERACILLIN/TAZOBACTAM <=4 S; Status: F Test: URINE CULTURE; Value: AZTREONAM <=1 S; Status: F Test: URINE CULTURE; Value: ERTAPENEM <=0.5 S; Status: F Test: URINE CULTURE; Value: MEROPENEM <=0.25 S; Status: F Test: URINE CULTURE; Value: TIGECYCLINE <=0.5 S; Status: F Test: URINE CULTURE; Value: CEFEPIME <=1 S; Status: F Lab Order: Liver Profile; SPEC'M 03/18/16 08:53 Test: AST/SGOT; Value: 15; Range: 15-37; Units: U/L; Status: F Test: ALT/SGPT; Value: 15; Range: 12-78; Units: U/L; Status: F Test: ALKALINE PHOSPHATASE; Value: 54; Range: 45-117; Units: U/L; Status: F Test: BILIRUBIN,TOTAL; Value: 0.2; Range: 0.2-1.0; Units: MG/DL; Status: F Test: BILIRUBIN,DIRECT; Value: < 0.1; Range: 0.0-0.2; Units: MG/DL; Status: F Test: TOTAL PROTEIN; Value: 6.6; Range: 6.4-8.2; Units: GM/DL; Status: F Test: ALBUMIN; Value: 3.4; Range: 3.2-5.2; Units: GM/DL; Status: F Test: ALBUMIN/GLOBULIN RATIO; Value: 1.06; Range: 1.00-1.93; Status: F Lab Order: Drug Eval Toxicology ED Only; SPEC'M 03/18/16 09:00 Test: AMPHETAMINES LEVEL URINE; Value: NEGATIVE; Range: NEGATIVE; Status: F Test: BARBITURATES URINE; Value: NEGATIVE; Range: NEGATIVE; Status: F Test: BENZODIAZEPINES URINE; Value: NEGATIVE; Range: NEGATIVE; Status: F Test: CANNABINOIDS URINE; Value: POSITIVE; Range: NEGATIVE; Abnormal: Above high normal; Status: F Test: COCAINE METABOLITE URINE; Value: NEGATIVE; Range: NEGATIVE; Status: F Test: METHADONE URINE; Value: NEGATIVE; Range: NEGATIVE; Status: F Test: OPIATES URINE; Value: NEGATIVE; Range: NEGATIVE; Status: F Test: TRICYCLIC ANTIDEPRESS URINE; Value: NEGATIVE; Range: NEGATIVE; Status: F Test Note: ; FALSE POSITIVE RESULTS CAN BE CAUSED BY THE USE OF PANTOPRAZOLE (PROTONIX). Lab Order: Urine Test-In Lab; SPEC'M 03/18/16 08:53 Test: URINE PREG TEST; Value: NEGATIVE; Range: NEGATIVE; Status: F Radiology Order: CT Head Without Contrast Test: CT Head Without Contrast REASON FOR EXAMINATION: HALL, dizzy; CT Head without contrast; ; HISTORY: Headache; ; COMPARISON: None; ; There is no intraparenchymal hemorrhage, acute infarct, mass or midline shift.; The ventricular system is normal in appearance. There is no extra cerebral; collection. There is no fracture. 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 btw 10:08 Discharge Assessment: Patient awake, alert and oriented x 3. No cognitive and/or pml functional deficits noted. Patient verbalized understanding of disposition instructions. patient administered narcotics - no. The following High Risk Discharge criteria are identified: None. Discharged to home ambulatory. Condition: good Condition: stable. Discharge instructions given to patient, Instructed on discharge instructions, follow up and referral plans. Demonstrated understanding of instructions, Pt was receptive of discharge instructions/ teaching. CT Study completed. Property sent home with patient. 10:09 Patient left the ED. pml Signatures: Dispatcher [employer] EDMS Shahla Hernandes, Coconut Jelly Roller Unit lbd Zahra Medel, Reg Reg gb Phillip Heath, Reg Reg lg Oren Junior PA PA btw Cait Davidson,ROXY RN pml Art Lee1 Holly Worrell2 Corrections: (The following items were deleted from the chart) 08:31 08:26 Presenting complaint: Patient states: woke up this AM and felt dizzy and pml nauseated. heavy smell of propane in building noted by EMS. pml Chart Complete MTDD
--- NOTE | 2016-03-20 17:40 | EDDOCDS ---
Physician Documentation [facility] Name: Jessi Preston Age: 30 yrs Sex: Female : 1985 Arrival Date: 03/18/2016 Time: 08:23 Bed 6 Private MD: Disposition: 03/18/16 09:58 Discharged to Home/Self Care. Impression: Migraine, unspecified, not intractable, without status migrainosus. - Condition is Stable. - Discharge Instructions: Migraine Headache. - Medication Reconciliation, Local Pharmacy Hours form. - Follow up: Private Physician; When: Call to arrange an appointment; Reason: Further diagnostic work-up, Recheck today's complaints, Continuance of care. - Problem is new. - Symptoms have improved. Historical: - Allergies: no known allergies; - Home Meds: 1. BCP 1 tab once daily - PMHx: none; - PSHx: none; - Social history: Smoking status: Patient states was never smoker of tobacco. No barriers to communication noted, The patient speaks fluent Mongolian, Speaks appropriately for age. - Family history: Not pertinent. - : The pt / caregiver states he / she is not on anticoagulants. Home medication list is obtained from the patient. - Exposure Risk Screening:: None identified. 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 10 in. (177.80 cm); Pain 0/10; 08:32 Pulse 64 MON; Pulse Ox 100% ; pml 08:44 Pulse 64 MON; Pulse Ox 100% ; pml 08:44 BP 115 / 58 (auto/); pml 08:55 Pulse 72 MON; Pulse Ox 99% ; pml 09:12 BP 123 / 87 (auto/); pml 09:14 BP 122 / 85 (auto/); pml 09:15 Pulse 70 MON; Pulse Ox 100% ; pml 09:29 Pulse 72 MON; Pulse Ox 100% ; pml 09:29 BP 117 / 79 (auto/); pml 09:41 Pulse 72 MON; Pulse Ox 87% ; pml 09:50 BP 124 / 77 (auto/); pml 10:08 BP 118 / 69; Pulse 73; Resp 18; Temp 97.6; Pulse Ox 100% ; pml 08:31 Body Mass Index 21.24 (67.13 kg, 177.80 cm) dem1 MDM: 08:46 Crime Investigator Special Agent/Pulse Ox/q 15 min VS ordered. btw 08:46 Accucheck ordered. btw 08:46 IV Saline Lock ordered. btw 08:47 Carboxyhemoglobin Ordered. EDMS 08:47 Basic Metabolic Profile Ordered. EDMS 08:47 CBC with Diff Ordered. EDMS 08:47 Thyroid Stimulating Hormone Ordered. EDMS 08:47 Urinalysis Ordered. EDMS 08:47 Liver Profile Ordered. EDMS 08:47 Drug Eval Toxicology ED Only Ordered. EDMS 08:47 Urine Culture Ordered. EDMS 08:48 CT Head Without Contrast Ordered. EDMS 08:48 ECG WITH READING ER PHYS+CARDIAG ordered. EDMS 09:04 Urine Test-In Lab Ordered. EDMS 09:15 Financial registration complete. lg 09:15 [facility] Payment Agreement was scanned into [employer] and attached to record. lg 09:35 Carboxyhemoglobin Reviewed. btw 09:35 Basic Metabolic Profile Reviewed. btw 09:35 CBC with Diff Reviewed. btw 09:35 Urinalysis Reviewed. btw 09:35 Drug Eval Toxicology ED Only Reviewed. btw 09:35 Thyroid Stimulating Hormone Reviewed. btw 09:35 Liver Profile Reviewed. btw 09:35 Urine Test-In Lab Reviewed. [facility] 03/19 16:16 T-Sheet-- Draft Copy was scanned into [employer] and attached to record. gb 16:16 ECG/EKG was scanned into [employer] and attached to record. gb Signatures: Dispatcher [employer] EDMS Zahra Medel, Reg Reg gb Phillip Heath, Reg Reg lg Fred Junior PA PA btw Cait Davidson RN RN pml The chart was reviewed and I authenticate all verbal orders and agree with the evaluation and treatment provided.Corrections: (The following items were deleted from the chart) 03/18 09:02 08:46 UCG by Nursing ordered. bt pml Attachments: 09:15 [facility] Payment Agreement 03/19 16:16 T-Sheet-- Draft Copy gb 16:16 ECG/EKG gb Chart Complete MTDD
--- NOTE | 2016-03-20 17:40 | EDDOCDS ---
Physician Documentation [facility] Name: Jessi Preston Age: 30 yrs Sex: Female : 1985 Arrival Date: 03/18/2016 Time: 08:23 Bed 6 Private MD: Disposition: 03/18/16 09:58 Discharged to Home/Self Care. Impression: Migraine, unspecified, not intractable, without status migrainosus. - Condition is Stable. - Discharge Instructions: Migraine Headache. - Medication Reconciliation, Local Pharmacy Hours form. - Follow up: Private Physician; When: Call to arrange an appointment; Reason: Further diagnostic work-up, Recheck today's complaints, Continuance of care. - Problem is new. - Symptoms have improved. Historical: - Allergies: no known allergies; - Home Meds: 1. BCP 1 tab once daily - PMHx: none; - PSHx: none; - Social history: Smoking status: Patient states was never smoker of tobacco. No barriers to communication noted, The patient speaks fluent Yi, Speaks appropriately for age. - Family history: Not pertinent. - : The pt / caregiver states he / she is not on anticoagulants. Home medication list is obtained from the patient. - Exposure Risk Screening:: None identified. 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 10 in. 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 btw 08:46 Accucheck ordered. btw 08:46 IV Saline Lock ordered. btw 08:47 Carboxyhemoglobin Ordered. EDMS 08:47 Basic Metabolic Profile Ordered. EDMS 08:47 CBC with Diff Ordered. EDMS 08:47 Thyroid Stimulating Hormone Ordered. EDMS 08:47 Urinalysis Ordered. EDMS 08:47 Liver Profile Ordered. EDMS 08:47 Drug Eval Toxicology ED Only Ordered. EDMS 08:47 Urine Culture Ordered. EDMS 08:48 CT Head Without Contrast Ordered. EDMS 08:48 ECG WITH READING ER PHYS+CARDIAG ordered. EDMS 09:04 Urine Test-In Lab Ordered. EDMS 09:15 Financial registration complete. lg 09:15 [facility] Payment Agreement was scanned into [employer] and attached to record. lg 09:35 Carboxyhemoglobin Reviewed. btw 09:35 Basic Metabolic Profile Reviewed. btw 09:35 CBC with Diff Reviewed. btw 09:35 Urinalysis Reviewed. btw 09:35 Drug Eval Toxicology ED Only Reviewed. btw 09:35 Thyroid Stimulating Hormone Reviewed. btw 09:35 Liver Profile Reviewed. btw 09:35 Urine Test-In Lab Reviewed. [facility] 03/19 16:16 T-Sheet-- Draft Copy was scanned into [employer] and attached to record. gb 16:16 ECG/EKG was scanned into [employer] and attached to record. gb Signatures: Dispatcher [employer] EDMS Zahra Medel, Reg Reg gb Phillip Heath, Reg Reg lg Fred Junior PA PA btw Cait Davidson RN RN pml The chart was reviewed and I authenticate all verbal orders and agree with the evaluation and treatment provided.Corrections: (The following items were deleted from the chart) 03/18 09:02 08:46 UCG by Nursing ordered. bt pml Attachments: 09:15 [facility] Payment Agreement 03/19 16:16 T-Sheet-- Draft Copy gb 16:16 ECG/EKG gb Chart Complete MTDD
== END 2016-03-18 10:09 | disposition home or self-care (01) ==
LOC: M ED 08:23
DX: G43.909 Migraine, unspecified, not intractable, without status migrainosus (principal)

== ENCOUNTER → 2016-12-26 | Outpatient (REF) | payer OTHER | LOC: M LAB REF 11:58 | PROVIDERS: ATTEND Physician Assistant | DX: J02.9 Acute pharyngitis, unspecified (principal) ==

== ENCOUNTER → 2018-05-04 | Outpatient (REF) | payer OTHER | LOC: M LAB REF 12:37 | PROVIDERS: ATTEND Physician Assistant | DX: J02.9 Acute pharyngitis, unspecified (principal) ==

== ENCOUNTER → 2018-12-18 | Outpatient (REF) | payer OTHER | LOC: M LAB REF 17:42 | PROVIDERS: ATTEND Obstetrics & Gynecology | DX: Z12.4 Encounter for screening for malignant neoplasm of cervix (principal); Z87.410 Personal history of cervical dysplasia ==

== ENCOUNTER → 2019-03-26 | Outpatient (CLI) | payer OTHER ==
--- NOTE | 2019-03-26 16:16 | REP ---
Clinical: IUD positioning. Technique: Transabdominal pelvic ultrasound followed by transvaginal examination for better evaluation of the endometrium and adnexa with color Doppler evaluation of the ovaries. Findings: Heterogeneous anteverted uterus measures 9.6 x 4.4 x 5.4 cm. IUD identified in central satisfactory position. Small amount of debris noted in the endocervical canal which may be related to menstrual cycle. The bilateral ovaries are normal in vascularity without torsion. Left ovary measures 2.3 x 1.5 x 2.0 cm (RI 0.70). Right ovary measures 5.8 x 3.8 x 4.6 cm (RI 0.50) and includes 3.8 cm complex likely hemorrhagic cyst and 3.6 cm simple cyst. No pelvic fluid or adnexal mass lesion. Impression: 1. IUD in satisfactory position. Small amount of endocervical fluid likely related to menstrual cycle. 2. Prominent complex and simple cysts in the right ovary likely physiologic. If necessary, consider reevaluation in 4-6 weeks to evaluate for resolution. Electronically Signed by Sergey Owens MD 03/26/2019 04:07 P
== END ==
LOC: M RAD 14:40
PROVIDERS: ATTEND Nurse Practitioner Family
DX: Z30.431 Encounter for routine checking of intrauterine contraceptive device (principal); N83.201 Unspecified ovarian cyst, right side

== ENCOUNTER → 2019-09-10 | Outpatient (REF) | payer OTHER | LOC: M SFHCWAGY 09:52 | PROVIDERS: ATTEND Nurse Practitioner Women's Health | DX: Z12.4 Encounter for screening for malignant neoplasm of cervix (principal) ==

== ENCOUNTER → 2019-09-18 | Outpatient (CLI) | payer OTHER ==
--- NOTE | 2019-11-01 11:40 | REP ---
PELVIC ULTRASOUND HISTORY: Right pelvic pain. TECHNIQUE: Real-time sonographic evaluation of the pelvis is performed utilizing transabdominal and endovaginal technique. FINDINGS: Bladder measures 2.7 x 1.7 x 5.3 cm. Uterus measures 8.7 x 4.2 x 5.6 cm. Endometrial thickness is 5-mm. There is an IUD seen in the lower uterine segment. Right ovary measures 4.4 x 3.6 x 3.8 cm and the left ovary 2.7 x 1.3 x 1.8 cm. There is no evidence of ovarian torsion with duplex Doppler evaluation. In the right ovary, there is a complex hypoechoic structure probably representing a complex hemorrhagic cyst. It measures 3.2 x 2.6 x 3.3 cm. There is no other evidence of adnexal mass or free fluid. IMPRESSION: Intrauterine device (IUD) in the lower uterine segment. Complex cystic structure right ovary probably represents a hemorrhagic cyst 3.3 cm in diameter. No torsion or free fluid. MTDD
== END ==
LOC: M RAD 14:30
PROVIDERS: ATTEND Obstetrics & Gynecology
DX: R10.2 Pelvic and perineal pain (principal); Z97.5 Presence of (intrauterine) contraceptive device

== ENCOUNTER 2020-05-10 12:22 | Emergency (ER) | payer OTHER ==
[~2020-05-10] VITALS: Ht 177.8 cm; Wt 85.0 kg
[2020-05-10 12:37] VITALS: BP 141/88
[2020-05-10] MEDS ORDERED: HYDR-3713 PO (13:19)
[2020-05-10] MEDS ORDERED: BACIOIN5 OS (13:19)
[2020-05-10] MEDS ORDERED: BACITRACIN OINTMENT 30GM TUBE TOP ONE (13:20)
[2020-05-10] MEDS ORDERED: PERCOCET 5MG/325MG TAB PO ONE (13:20)
[2020-05-10] MEDS ORDERED: BOOSTRIX/ADACEL VACCINE (DIPHTH/PERTUSS/ACELL/TETANUS) 0.5ML SYR IM ONE (13:25)
== END 2020-05-10 13:51 | disposition home or self-care (01) ==
LOC: M ED 12:22
DX: T23.272A Burn of second degree of left wrist, initial encounter (principal); T23.202A Burn of second degree of left hand, unspecified site, initial encounter; T31.0 Burns involving less than 10% of body surface; X12.XXXA Contact with other hot fluids, initial encounter; Y92.009 Unspecified place in unspecified non-institutional (private) residence as the place of occurrence of the external cause; Y93.9 Activity, unspecified; Y99.9 Unspecified external cause status; F17.200 Nicotine dependence, unspecified, uncomplicated

== ENCOUNTER → 2022-03-01 | Outpatient (REF) | payer OTHER ==
[~2022-03-01] MED LIST changes: +BACIOIN5 OS; +HYDR-3713 PO
== END ==
LOC: M SFHCWAGY 17:01
PROVIDERS: ATTEND Obstetrics & Gynecology
DX: Z12.4 Encounter for screening for malignant neoplasm of cervix (principal); R87.619 Unspecified abnormal cytological findings in specimens from cervix uteri

== ENCOUNTER → 2022-03-18 | Outpatient (CLI) | payer OTHER | LOC: M WHC 08:41 | PROVIDERS: ATTEND Obstetrics & Gynecology | DX: N83.291 Other ovarian cyst, right side (principal); R10.2 Pelvic and perineal pain; Z97.5 Presence of (intrauterine) contraceptive device ==

== ENCOUNTER → 2022-08-05 | Outpatient (REF) | payer OTHER | LOC: M LAB REF 12:16 | PROVIDERS: ATTEND Physician Assistant Medical | DX: M79.10 Myalgia, unspecified site (principal) ==

== ENCOUNTER → 2023-01-16 | Outpatient (REF) | payer OTHER ==
[2023-01-16 17:38] LABS: BASO # 0.1 10^3/uL (0.0-0.2); BASO % 0.9 % (0.0-1.0); EOS # 0.1 10^3/uL (0.0-0.5); EOS % 0.9 % (0.0-3.0); HEMATOCRIT 40.4 % (36.0-47.0); HEMOGLOBIN 13.4 g/dl (12.0-15.5); LYMPH # 2.1 10^3/uL (1.5-5.0); LYMPH % 38.8 % (24.0-44.0); MEAN CORPUSCULAR HEMOGLOBIN 30.7 pg (27.0-33.0); MEAN CORPUSCULAR HGB CONC 33.2 g/dl (32.0-36.5); MEAN CORPUSCULAR VOLUME 92.7 fl (80.0-96.0); MONO # 0.5 10^3/uL (0.0-0.8); MONO % 9.1 % (2.0-8.0); NEUTROPHILS # 2.7 10^3/uL (1.5-8.5); NEUTROPHILS % 50.1 % (36.0-66.0); PLATELET COUNT, AUTOMATED 307 10^3/uL (150-450); RED BLOOD COUNT 4.36 10^6/uL (4.00-5.40); WHITE BLOOD COUNT 5.3 10^3/uL (4.0-10.0)
[2023-01-16 17:48] LABS: ALKALINE PHOSPHATASE 68 U/L (46-116); ALT/SGPT 15 U/L (7.0-40); AST/SGOT 14 U/L (<34); BILIRUBIN,TOTAL 0.4 MG/DL (0.3-1.2); BLOOD UREA NITROGEN 10 MG/DL (9-23); CALCIUM LEVEL 9.3 MG/DL (8.5-10.1); CARBON DIOXIDE LEVEL 29 MMOL/L (20-31); CHLORIDE LEVEL 103 MMOL/L (98-107); CHOLESTEROL LEVEL 225 MG/DL (<200); CHOLESTEROL RISK RATIO 4.24 (<5); CREATININE FOR GFR 0.79 MG/DL (0.55-1.30); GLOMERULAR FILTRATION RATE > 60.0 (>60); GLUCOSE, FASTING 86 MG/DL (60-100); LDL CHOLESTEROL 148.8 MG/DL (<100); MAGNESIUM LEVEL 1.9 MG/DL (1.8-2.4); POTASSIUM SERUM 4.6 MMOL/L (3.5-5.1); SODIUM LEVEL 137 MMOL/L (136-145); THYROID STIMULATING HORMONE 5.948 uIU/ML (0.55-4.78); TOTAL PROTEIN 7.3 G/DL (5.7-8.2); TRIGLYCERIDES LEVEL 116 MG/DL (<150)
[2023-01-16 17:51] LABS: TOTAL 25(OH) VITAMIN D 7.8 NG/ML (20.0-100.0)
[2023-01-16 17:55] LABS: HEMOGLOBIN A1c 5.3 % (4.0-6.0)
== END ==
LOC: M LAB REF 16:39
PROVIDERS: ATTEND Nurse Practitioner Family
DX: E66.3 Overweight (principal); E55.9 Vitamin D deficiency, unspecified

== ENCOUNTER → 2023-01-19 | Outpatient (CLI) | payer OTHER | LOC: M RAD 09:07 | PROVIDERS: ATTEND Nurse Practitioner Family | DX: R07.9 Chest pain, unspecified (principal) ==

== ENCOUNTER → 2023-03-22 | Outpatient (CLI) | payer OTHER | LOC: M WHC 11:13 | PROVIDERS: ATTEND Obstetrics & Gynecology | DX: N83.201 Unspecified ovarian cyst, right side (principal); Z97.5 Presence of (intrauterine) contraceptive device; N83.202 Unspecified ovarian cyst, left side ==

== ENCOUNTER → 2023-04-18 | Outpatient (REF) | payer OTHER ==
[2023-04-18 14:24] LABS: CHOLESTEROL RISK RATIO 4.35 (<5); HDL CHOLESTEROL 43.4 MG/DL (>40); NON-HDL-C 145.6 MG/DL
[2023-04-18 14:27] LABS: FREE T4 1.1 NG/DL (0.89-1.76); THYROID STIMULATING HORMONE 2.905 uIU/ML (0.55-4.78)
== END ==
LOC: M LAB REF 09:21
PROVIDERS: ATTEND Nurse Practitioner Family
DX: R94.6 Abnormal results of thyroid function studies (principal); E79.89 Other specified disorders of purine and pyrimidine metabolism

== ENCOUNTER → 2023-06-29 | Outpatient (REF) | payer OTHER | LOC: M LAB REF 12:14 | PROVIDERS: ATTEND Physician Assistant Medical | DX: J02.9 Acute pharyngitis, unspecified (principal) ==

== ENCOUNTER → 2023-07-11 | Outpatient (REF) | payer OTHER ==
[2023-07-11 13:39] LABS: ALBUMIN 3.8 G/DL (3.2-5.2); ALKALINE PHOSPHATASE 69 U/L (46-116); ALT/SGPT 9 U/L (7.0-40); AST/SGOT < 8 U/L (<34); BILIRUBIN,TOTAL 0.3 MG/DL (0.3-1.2); BLOOD UREA NITROGEN 13 MG/DL (9-23); CALCIUM LEVEL 9.5 MG/DL (8.5-10.1); CARBON DIOXIDE LEVEL 29 MMOL/L (20-31); CHLORIDE LEVEL 106 MMOL/L (98-107); CHOLESTEROL LEVEL 144 MG/DL (<200); CHOLESTEROL RISK RATIO 3.08 (<5); CREATININE FOR GFR 0.88 MG/DL (0.55-1.30); GLOMERULAR FILTRATION RATE > 60.0 (>60); GLUCOSE, FASTING 95 MG/DL (60-100); HDL CHOLESTEROL 46.7 MG/DL (>40); LDL CHOLESTEROL 78.3 MG/DL (<100); NON-HDL-C 97.3 MG/DL; POTASSIUM SERUM 4.5 MMOL/L (3.5-5.1); SODIUM LEVEL 140 MMOL/L (136-145); TOTAL PROTEIN 6.8 G/DL (5.7-8.2); TRIGLYCERIDES LEVEL 95 MG/DL (<150)
== END ==
LOC: M LAB REF 12:53
PROVIDERS: ATTEND Nurse Practitioner Family
DX: R79.89 Other specified abnormal findings of blood chemistry (principal)

== ENCOUNTER → 2023-08-09 | Outpatient (CLI) | payer OTHER | LOC: M RAD 07:09 | PROVIDERS: ATTEND Nurse Practitioner Family | DX: R10.9 Unspecified abdominal pain (principal) ==

== ENCOUNTER → 2024-04-15 | Outpatient (CLI) | payer OTHER | LOC: M WHC 10:57 | PROVIDERS: ATTEND Obstetrics & Gynecology | DX: R10.2 Pelvic and perineal pain (principal); N83.202 Unspecified ovarian cyst, left side; N88.8 Other specified noninflammatory disorders of cervix uteri; I86.8 Varicose veins of other specified sites ==

== ENCOUNTER → 2024-12-02 | Outpatient (REF) | payer OTHER ==
[2024-12-04 15:47] LABS: HPV APTIMA Not Detected (Not Detected)
== END ==
LOC: M SFHCWAGY 13:09
PROVIDERS: ATTEND Obstetrics & Gynecology
DX: Z12.4 Encounter for screening for malignant neoplasm of cervix (principal)

== ENCOUNTER → 2024-12-02 | Outpatient (CLI) | payer OTHER | LOC: M WHC 10:25 | PROVIDERS: ATTEND Obstetrics & Gynecology | DX: Z12.31 Encounter for screening mammogram for malignant neoplasm of breast (principal) ==

== ENCOUNTER → 2024-12-17 | Outpatient (CLI) | payer OTHER | LOC: M WHC 14:37 | PROVIDERS: ATTEND Obstetrics & Gynecology | DX: Z12.4 Encounter for screening for malignant neoplasm of cervix (principal); Z12.31 Encounter for screening mammogram for malignant neoplasm of breast; R92.333 Mammographic heterogeneous density, bilateral breasts; N60.12 Diffuse cystic mastopathy of left breast; R59.0 Localized enlarged lymph nodes ==